=== PATIENT | female | born 1950 ===

== ENCOUNTER 2016-05-14 08:36 | Day surgery (SDC) | payer OTHER ==
[2016-05-13 11:39] VITALS: BMI 27.8
[2016-05-14 09:41] LABS: BASO % 1.1 % (0.0-2.0); EOS # 0.1 K/uL (0.0-0.7); EOS % 1.7 % (0.0-4.0); HEMATOCRIT 32.8 % (34.0-47.0); LYMPH # 0.6 K/uL (1.0-4.3); LYMPH % 20.6 % (20.0-40.0); MEAN CELL VOLUME 85.4 fL (81.0-99.0); MEAN CORPUSCULAR HEMOGLOBIN 27.8 pg (27.0-31.0); MEAN CORPUSCULAR HGB CONC 32.5 g/dL (33.0-37.0); MONO # 0.4 K/uL (0.0-0.8); MONO % 14.2 % (0.0-10.0); NRBC % 0.1 % (0.0-2.0); RED CELL DISTRIBUTION WIDTH 15.6 % (11.5-14.5)
[2016-05-14 09:51] LABS: INR 1.2
--- NOTE | 2016-05-14 12:48 | CP.SDSHP ---
Same Day Surgery H & P - History Proposed Procedure: US guided paracentesis. Pre-Op Diagnosis: Ascites - Allergies Allergies: Allergies No Known Allergies Allergy (Verified 04/25/15 22:36) - Physical Exam Vital Signs: Vital Signs 05/14/16 09:38 Temperature 97.9 F Pulse Rate 85 Respiratory 20 Rate Blood Pressure 115/69 O2 Sat by Pulse 99 Oximetry Mental Status: Alert & Oriented x3 Neuro: WNL Heart: WNL Lungs: WNL - Impression Impression: Pt with refractory ascites. Plan US guided paracentesis. Pt. Evaluated Today:Candidate for Anesthesia & Procedure: No - Date & Time Date: 05/14/16 Time: 12:40 Short Stay Discharge - Short Stay Discharge Admitting Diagnosis/Reason for Visit: SYMPTOMATIC ASCITES Disposition: HOME/ ROUTINE
--- NOTE | 2016-05-14 12:49 | PCM.SURG1 ---
Surgeon's Initial Post Op Note - Surgeon's Notes Surgeon: Paul Sepulveda MD Senior Software Test Engineer: NONE Type of Anesthesia: Local Pre-Operative Diagnosis: Refractory ascites Operative Findings: US showed a large amount of fluid Post-Operative Diagnosis: Refractory ascites Operation Performed: US guided paracentesis. Specimen/Specimens Removed: 17 liters of yellow fluid Estimated Blood Loss: EBL {In ML}: 0 Blood Products Given: N/A Drains Used: No Drains Post-Op Condition: Fair Date of Surgery/Procedure: 05/14/16 Time of Surgery/Procedure: 12:45
[2016-05-14 12:54] VITALS: RESP 16; O2SAT 100
[2016-05-14 15:00] VITALS: BP 102/76; PULSE 80; TEMP 97.7
== END 2016-05-14 13:25 | disposition home or self-care (01) ==
LOC: C.SPRAD 08:36
PROVIDERS: ATTEND Radiology Vascular & Interventional Radiology
DX: R18.8 Other ascites (principal)

== ENCOUNTER 2016-06-11 09:16 | Day surgery (SDC) | payer MEDICARE, OTHER ==
[2016-06-11 10:06] VITALS: BMI 29.2
[2016-06-11 10:28] LABS: BASO % 1.3 % (0.0-2.0); EOS % 1.7 % (0.0-4.0); HEMATOCRIT 32.1 % (34.0-47.0); LYMPH # 0.4 K/uL (1.0-4.3); LYMPH % 14.7 % (20.0-40.0); MEAN CELL VOLUME 86.3 fL (81.0-99.0); MEAN CORPUSCULAR HEMOGLOBIN 27.4 pg (27.0-31.0); MEAN CORPUSCULAR HGB CONC 31.7 g/dL (33.0-37.0); MEAN PLATELET VOLUME 8.9 fL (7.2-11.7); MONO # 0.3 K/uL (0.0-0.8); MONO % 9.2 % (0.0-10.0); NRBC % 0.1 % (0.0-2.0); RED CELL DISTRIBUTION WIDTH 15.4 % (11.5-14.5); WHITE BLOOD COUNT 2.8 K/uL (4.8-10.8)
[2016-06-11 10:36] LABS: INR 1.2
[2016-06-11 10:43] LABS: POTASSIUM 4.1 mmol/L (3.6-5.2)
[2016-06-11 10:46] LABS: CALCIUM 8.5 mg/dl (8.6-10.4)
--- NOTE | 2016-06-11 12:56 | PCM.SURG1 ---
Surgeon's Initial Post Op Note - Surgeon's Notes Surgeon: Paul Sepulveda MD Lieutenant Shift Supervisor: NONE Type of Anesthesia: Local Pre-Operative Diagnosis: Refractory ascites Operative Findings: US showed a large amount of ascites Post-Operative Diagnosis: Refractory ascites Operation Performed: US guided paracentesis. Specimen/Specimens Removed: 16 liters of straw colored fluid Estimated Blood Loss: EBL {In ML}: 0 Blood Products Given: N/A Drains Used: No Drains Post-Op Condition: Fair Date of Surgery/Procedure: 06/11/16 Time of Surgery/Procedure: 12:40
--- NOTE | 2016-06-11 12:57 | CP.SDSHP ---
Same Day Surgery H & P - History Proposed Procedure: US guided paracentesis Pre-Op Diagnosis: Ascites, abdominal pain - Allergies Allergies: Allergies No Known Allergies Allergy (Verified 04/25/15 22:36) - Physical Exam Vital Signs: Vital Signs 06/11/16 10:23 Temperature 97.6 F Pulse Rate 86 Respiratory 20 Rate Blood Pressure 123/69 O2 Sat by Pulse 99 Oximetry Mental Status: Alert & Oriented x3 Neuro: WNL Heart: WNL Lungs: WNL - {Optional Preform as Required} Abdomen: Other (Very distended) - Impression Impression: Pt with large amount of ascites. Plan US guided paracentesis. Pt. Evaluated Today:Candidate for Anesthesia & Procedure: No Short Stay Discharge - Short Stay Discharge Admitting Diagnosis/Reason for Visit: ASCITES CIRRHOSIS OF LIVER Disposition: HOME/ ROUTINE
[2016-06-11 14:35] VITALS: RESP 18; O2SAT 100
[2016-06-11 14:37] VITALS: BP 122/78; PULSE 76; TEMP 98
--- NOTE | 2016-06-11 15:46 | US ---
Date of Procedure: 06/11/2016 PROCEDURE: Ultrasound-guided paracentesis, CPT 38142 Medications: 8cc 1% Lidocaine HISTORY: Ascites, abdominal pain, cirrhosis TECHNIQUE: Following informed consent , the patient was placed supine on the stretcher and the site was marked. A limited abdominal ultrasound was performed that showed a large amount of intra-abdominal fluid. Procedural time out was called and the Pt's abdomen was marked and prepped and draped in the usual sterile fashion. Ultrasound-guided large volume paracentesis performed. A total of 16 liters of straw colored fluid was removed without complication. IMPRESSION: Ultrasound-guided large volume paracentesis.
== END 2016-06-11 13:20 | disposition home or self-care (01) ==
LOC: C.SPRAD 09:16
PROVIDERS: ATTEND Radiology Vascular & Interventional Radiology
DX: K70.31 Alcoholic cirrhosis of liver with ascites (principal); R10.9 Unspecified abdominal pain

== ENCOUNTER 2016-07-05 06:55 | Day surgery (SDC) | payer MEDICAID, MEDICARE ==
--- NOTE | 2016-07-05 11:14 | CP.SDSHP ---
Same Day Surgery H & P - History Proposed Procedure: US guided paracentesis Pre-Op Diagnosis: Ascites - Allergies Allergies: Allergies No Known Allergies Allergy (Verified 04/25/15 22:36) - Physical Exam Vital Signs: Vital Signs 07/05/16 07:15 Temperature 97.6 F Pulse Rate 78 Respiratory 20 Rate Blood Pressure 105/70 O2 Sat by Pulse 100 Oximetry Mental Status: Alert & Oriented x3 Neuro: WNL Heart: WNL Lungs: WNL - {Optional Preform as Required} Abdomen: Other (very distended. non tender.) - Impression Impression: Pt with refractory ascites referred for paracentesis. Pt. Evaluated Today:Candidate for Anesthesia & Procedure: No Short Stay Discharge - Short Stay Discharge Admitting Diagnosis/Reason for Visit: ASCITIES
--- NOTE | 2016-07-05 11:16 | PCM.SURG1 ---
Surgeon's Initial Post Op Note - Surgeon's Notes Surgeon: Paul Sepulveda Toy Stuffer: None Type of Anesthesia: Local Pre-Operative Diagnosis: Ascites Operative Findings: US showed a large amount of ascites Post-Operative Diagnosis: Ascites Operation Performed: US guided paracentesis. Specimen/Specimens Removed: 17, 800 ml of straw colored fluid Estimated Blood Loss: EBL {In ML}: 0 Blood Products Given: N/A Drains Used: No Drains Post-Op Condition: Fair Date of Surgery/Procedure: 07/05/16 Time of Surgery/Procedure: 11:25
--- NOTE | 2016-07-05 11:50 | US ---
Date of Procedure: 07/05/2016 PROCEDURE: Ultrasound-guided paracentesis, CPT 52823 Medications: 8cc 1% Lidocaine HISTORY: Ascites, abdominal pain, TECHNIQUE: Following informed consent , the patient was placed supine on the stretcher and the site was marked. A limited abdominal ultrasound was performed that showed a large amount of intra-abdominal fluid. Procedural time out was called and the Pt's abdomen was marked and prepped and draped in the usual sterile fashion. Ultrasound-guided large volume paracentesis performed. A total of 17.8 liters of straw colored fluid was removed without complication. IMPRESSION: Ultrasound-guided large volume paracentesis.
[2016-07-05 11:59] VITALS: BP 98/56; PULSE 76; RESP 18; TEMP 97.8; O2SAT 98
== END 2016-07-05 12:05 | disposition home or self-care (01) ==
LOC: C.SPRAD 06:55
PROVIDERS: ATTEND Radiology Vascular & Interventional Radiology
DX: R18.8 Other ascites (principal)

== ENCOUNTER 2016-07-29 10:54 | Day surgery (SDC) | payer MEDICAID ==
[2016-07-28 10:50] VITALS: BMI 30.2
[2016-07-29 11:45] VITALS: RESP 18; O2SAT 100
[2016-07-29 14:06] VITALS: BP 101/52; PULSE 72; TEMP 97.5
--- NOTE | 2016-07-29 15:01 | PCM.SURG1 ---
Surgeon's Initial Post Op Note - Surgeon's Notes Surgeon: Paul Sepulveda MD Nursing Admin: None Type of Anesthesia: Local Pre-Operative Diagnosis: Ascites Operative Findings: US showed a large amount of ascites Post-Operative Diagnosis: Ascites Operation Performed: US guided paracentesis. Specimen/Specimens Removed: 17 liters of straw colored fluid Estimated Blood Loss: EBL {In ML}: 0 Blood Products Given: N/A Drains Used: No Drains Post-Op Condition: Fair Date of Surgery/Procedure: 07/29/16 Time of Surgery/Procedure: 14:20
--- NOTE | 2016-07-29 15:02 | CP.SDSHP ---
Same Day Surgery H & P - History Proposed Procedure: US guided paracentesis. Pre-Op Diagnosis: Ascites - Allergies Allergies: Allergies No Known Allergies Allergy (Verified 04/25/15 22:36) - Physical Exam Vital Signs: Vital Signs 07/29/16 07/29/16 11:23 13:56 Temperature 97.7 F 97.5 F L Pulse Rate 83 72 Respiratory 18 18 Rate Blood Pressure 110/60 101/52 L O2 Sat by Pulse 100 100 Oximetry Mental Status: Alert & Oriented x3 Neuro: WNL Heart: WNL - {Optional Preform as Required} Abdomen: Other (very distended, non tender) - Impression Impression: Pt with refractory ascites. Plan US guided paracentesis. Pt. Evaluated Today:Candidate for Anesthesia & Procedure: No - Date & Time Date: 07/29/16 Time: 13:00 Short Stay Discharge - Short Stay Discharge Admitting Diagnosis/Reason for Visit: ASCITIS Disposition: HOME/ ROUTINE
--- NOTE | 2016-07-29 15:11 | US ---
Date of Procedure: 07/29/2016 PROCEDURE: Ultrasound-guided paracentesis, CPT 78584 Medications: 8cc 1% Lidocaine HISTORY: Ascites, abdominal pain TECHNIQUE: Following informed consent , the patient was placed supine on the stretcher and the site was marked. A limited abdominal ultrasound was performed that showed a large amount of intra-abdominal fluid. Procedural time out was called and the Pt's abdomen was marked and prepped and draped in the usual sterile fashion. Ultrasound-guided large volume paracentesis performed. A total of 17 liters of straw colored fluid was removed without complication. IMPRESSION: Ultrasound-guided large volume paracentesis.
== END 2016-07-29 14:41 | disposition home or self-care (01) ==
LOC: C.SPRAD 10:54
PROVIDERS: ATTEND Radiology Vascular & Interventional Radiology
DX: R18.8 Other ascites (principal)

== ENCOUNTER 2016-08-26 07:31 | Day surgery (SDC) | payer MEDICARE, OTHER ==
[2016-07-28 10:50] VITALS: BMI 30.2
[2016-08-26 08:13] VITALS: RESP 18
--- NOTE | 2016-08-26 11:30 | CP.SDSHP ---
Same Day Surgery H & P - History Proposed Procedure: US guided paracentesis. Pre-Op Diagnosis: Ascites - Allergies Allergies: Allergies No Known Allergies Allergy (Verified 04/25/15 22:36) - Physical Exam Vital Signs: Vital Signs 08/26/16 08:04 Temperature 97.6 F Pulse Rate 82 Respiratory 18 Rate Blood Pressure 117/65 O2 Sat by Pulse 99 Oximetry Mental Status: Alert & Oriented x3 - {Optional Preform as Required} Abdomen: Other (very distended, non tender.) - Impression Impression: Pt with refractory ascites referred for paracentesis. Plan US guided paracentesis. Pt. Evaluated Today:Candidate for Anesthesia & Procedure: No - Date & Time Date: 08/26/16 Time: 11:15 Short Stay Discharge - Short Stay Discharge Admitting Diagnosis/Reason for Visit: ASCITESIS Disposition: HOME/ ROUTINE
--- NOTE | 2016-08-26 12:58 | PCM.SURG1 ---
Surgeon's Initial Post Op Note - Surgeon's Notes Surgeon: Paul Sepulveda MD Industrial Gas Servicer: NONE Type of Anesthesia: Local Pre-Operative Diagnosis: Ascites Operative Findings: US showed large amount of ascites Post-Operative Diagnosis: Ascites Operation Performed: US guided paracentesis. Specimen/Specimens Removed: 18.6 liters of straw colored fluid Estimated Blood Loss: EBL {In ML}: 0 Blood Products Given: N/A Drains Used: No Drains Post-Op Condition: Fair Date of Surgery/Procedure: 08/26/16 Time of Surgery/Procedure: 12:55
[2016-08-26 13:07] VITALS: BP 124/58; PULSE 72; TEMP 97.4; O2SAT 100
--- NOTE | 2016-08-27 11:41 | US ---
Date of Procedure: 08/26/2016 PROCEDURE: Ultrasound-guided paracentesis, CPT 36932 Medications: 8cc 1% Lidocaine HISTORY: Ascites, abdominal pain, cirrhosis TECHNIQUE: Following informed consent , the patient was placed supine on the stretcher and the site was marked. A limited abdominal ultrasound was performed that showed a large amount of intra-abdominal fluid. Procedural time out was called and the Pt's abdomen was marked and prepped and draped in the usual sterile fashion. Ultrasound-guided large volume paracentesis performed. A total of 18.6 liters of straw colored fluid was removed without complication. IMPRESSION: Ultrasound-guided large volume paracentesis.
== END 2016-08-26 13:15 | disposition home or self-care (01) ==
LOC: C.SPRAD 07:31
PROVIDERS: ATTEND Radiology Vascular & Interventional Radiology
DX: R18.8 Other ascites (principal); K74.60 Unspecified cirrhosis of liver

== ENCOUNTER 2016-09-20 07:54 | Day surgery (SDC) | payer OTHER, MEDICARE ==
[2016-09-20 08:12] VITALS: BMI 29.2
[2016-09-20 08:26] VITALS: BP 90/60; PULSE 80; RESP 18; TEMP 97.7; O2SAT 97
--- NOTE | 2016-09-20 11:15 | CP.SDSHP ---
Same Day Surgery H & P - History Proposed Procedure: Paracentesis Pre-Op Diagnosis: Ascites - Allergies Allergies: Allergies No Known Allergies Allergy (Verified 04/25/15 22:36) - Physical Exam Vital Signs: Vital Signs 09/20/16 08:12 Temperature 97.7 F Pulse Rate 80 Respiratory 18 Rate Blood Pressure 90/60 L O2 Sat by Pulse 97 Oximetry Mental Status: Alert & Oriented x3 - Impression Impression: Pt with refractory ascites referred for paracentesis. Pt. Evaluated Today:Candidate for Anesthesia & Procedure: No - Date & Time Date: 09/20/16 Time: 10:10 Short Stay Discharge - Short Stay Discharge Admitting Diagnosis/Reason for Visit: ASCITIS Disposition: HOME/ ROUTINE
--- NOTE | 2016-09-20 11:16 | PCM.SURG1 ---
Surgeon's Initial Post Op Note - Surgeon's Notes Surgeon: Paul Sepulveda MD Manager Mortgage: None Type of Anesthesia: Local Pre-Operative Diagnosis: Ascites Operative Findings: US showed large amount of ascites Post-Operative Diagnosis: Ascites Operation Performed: US guided paracentesis. Specimen/Specimens Removed: 17.5 liters of cloudy fluid Estimated Blood Loss: EBL {In ML}: 0 Blood Products Given: N/A Drains Used: No Drains Post-Op Condition: Fair Date of Surgery/Procedure: 09/20/16 Time of Surgery/Procedure: 11:10
--- NOTE | 2016-09-20 13:28 | US ---
Date of Procedure: 09/20/2016 PROCEDURE: Ultrasound-guided paracentesis, CPT 53661 Medications: 7 cc 1% Lidocaine HISTORY: Ascites, abdominal pain, cirrhosis TECHNIQUE: Following informed consent , the patient was placed supine on the stretcher and the site was marked. A limited abdominal ultrasound was performed that showed a large amount of intra-abdominal fluid. Procedural time out was called and the Pt's abdomen was marked and prepped and draped in the usual sterile fashion. Ultrasound-guided large volume paracentesis performed. A total of 17.5 liters of cloudy fluid was removed without complication. IMPRESSION: Ultrasound-guided large volume paracentesis.
== END 2016-09-20 12:45 | disposition home or self-care (01) ==
LOC: C.SPRAD 07:54
PROVIDERS: ATTEND Radiology Vascular & Interventional Radiology
DX: R18.8 Other ascites (principal); K74.60 Unspecified cirrhosis of liver

== ENCOUNTER 2016-10-14 05:49 | Day surgery (SDC) | payer MEDICARE, OTHER ==
[2016-10-14 08:17] LABS: INR 1.1
--- NOTE | 2016-10-14 09:02 | CP.SDSHP ---
Same Day Surgery H & P - History Proposed Procedure: Paracentesis Pre-Op Diagnosis: Ascites - Allergies Allergies: Allergies No Known Allergies Allergy (Verified 04/25/15 22:36) - Physical Exam Vital Signs: Vital Signs 10/14/16 07:31 Temperature 97.6 F Pulse Rate 80 Respiratory 18 Rate Blood Pressure 104/62 O2 Sat by Pulse 99 Oximetry Short Stay Discharge - Short Stay Discharge Admitting Diagnosis/Reason for Visit: RECURRENT ASCITES Disposition: HOME/ ROUTINE
[2016-10-14] MEDS ORDERED: Albumin Human 25% (12.5 gm/50 ml) IV ONE ×3 (10:00)
[2016-10-14 10:44] VITALS: PULSE 75
[2016-10-14 12:11] VITALS: BP 90/52; RESP 20; TEMP 97.2; O2SAT 100
--- NOTE | 2016-10-14 14:30 | US ---
Ultrasound guided paracentesis. Clinical History: Ascites with abdominal pain and distension. Technique: The relative risks and indications for the procedure were explained to the patient and informed written consent obtained. Sonography of the abdomen was performed in a supine position. This revealed a large amount of non-loculated ascites, greatest in the right lower quadrant. A puncture site was selected and the area was prepped and draped in the usual sterile fashion. 1% lidocaine was used to anesthetize the skin and soft tissues. A 5 Azeri paracentesis catheter was trocared into the right lower quadrant under real time ultrasound guidance. A permanent image was stored. Approximately [id number] of zuly fluid aspirated. Impression: Ultrasound-guided paracentesis in the right lower quadrant. Approximately 81312 cc of zuly colored fluid was aspirated.
== END 2016-10-14 11:37 | disposition home or self-care (01) ==
LOC: C.SPRAD 05:49
PROVIDERS: ATTEND Orthopaedic Surgery Sports Medicine
DX: R18.8 Other ascites (principal)
CPT/HCPCS: 36415; 49083; 82948; 85610; 85730; P9047

== ENCOUNTER 2016-11-01 07:13 | Day surgery (SDC) | payer OTHER ==
[2016-11-01 08:27] VITALS: O2SAT 100
--- NOTE | 2016-11-01 12:00 | US ---
Date of Procedure: 11/01/2016 PROCEDURE: Ultrasound-guided paracentesis, CPT 37102 Medications: 7 cc 1% Lidocaine HISTORY: Ascites, abdominal pain, cirrhosis TECHNIQUE: Following informed consent , the patient was placed supine on the stretcher and the site was marked. A limited abdominal ultrasound was performed that showed a large amount of intra-abdominal fluid. Procedural time out was called and the Pt's abdomen was marked and prepped and draped in the usual sterile fashion. Ultrasound-guided large volume paracentesis performed. A total of 17.6 liters of yellow fluid was removed without complication. IMPRESSION: Ultrasound-guided large volume paracentesis.
[2016-11-01 12:08] VITALS: RESP 18
[2016-11-01 12:25] VITALS: BP 101/54; PULSE 74; TEMP 98
--- NOTE | 2016-11-01 12:25 | CP.SDSHP ---
Same Day Surgery H & P - History Proposed Procedure: Paracentesis. Pre-Op Diagnosis: Ascites - Allergies Allergies: Allergies No Known Allergies Allergy (Verified 04/25/15 22:36) - Physical Exam Vital Signs: Vital Signs 11/01/16 11/01/16 07:59 11:55 Temperature 97.2 F L 97.8 F Pulse Rate 73 75 Respiratory 20 18 Rate Blood Pressure 105/67 90/45 L O2 Sat by Pulse 100 100 Oximetry Mental Status: Alert & Oriented x3 Neuro: WNL Heart: WNL Lungs: WNL - {Optional Preform as Required} Abdomen: Other (Very distended. Non tender) - Impression Impression: Pt with refractory ascites referred for paracentesis. Pt. Evaluated Today:Candidate for Anesthesia & Procedure: No - Date & Time Date: 11/01/16 Time: 10:30 Short Stay Discharge - Short Stay Discharge Admitting Diagnosis/Reason for Visit: ASCITES Disposition: HOME/ ROUTINE
--- NOTE | 2016-11-01 12:26 | PCM.SURG1 ---
Surgeon's Initial Post Op Note - Surgeon's Notes Surgeon: Paul Sepulveda MD Ve Teacher: NONE Type of Anesthesia: Local Pre-Operative Diagnosis: Refractory ascites Operative Findings: US showed large amount of ascites Post-Operative Diagnosis: Refractory ascites Operation Performed: US guided paracentesis. Specimen/Specimens Removed: 17.6 liters of yellow fluid. Estimated Blood Loss: EBL {In ML}: 0 Blood Products Given: N/A Drains Used: No Drains Post-Op Condition: Fair Date of Surgery/Procedure: 11/01/16 Time of Surgery/Procedure: 11:45
== END 2016-11-01 12:20 | disposition home or self-care (01) ==
LOC: C.SPRAD 07:13
PROVIDERS: ATTEND Radiology Vascular & Interventional Radiology
DX: R10.9 Unspecified abdominal pain (principal); K74.60 Unspecified cirrhosis of liver; R18.8 Other ascites

== ENCOUNTER 2016-11-25 06:59 | Day surgery (SDC) | payer OTHER ==
--- NOTE | 2016-11-25 11:37 | CP.SDSHP ---
Same Day Surgery H & P - History Proposed Procedure: US guided paracentesis. Pre-Op Diagnosis: Ascites - Allergies Allergies: Allergies No Known Allergies Allergy (Verified 04/25/15 22:36) - Physical Exam Vital Signs: Vital Signs 11/25/16 07:15 Temperature 97.1 F L Pulse Rate 76 Respiratory 20 Rate Blood Pressure 106/63 O2 Sat by Pulse 100 Oximetry Mental Status: Alert & Oriented x3 Neuro: WNL Heart: WNL Lungs: WNL - Impression Impression: Pt with large amount of ascites. Plan US guided paracentesis. Pt. Evaluated Today:Candidate for Anesthesia & Procedure: No Short Stay Discharge - Short Stay Discharge Admitting Diagnosis/Reason for Visit: ASCITIC
--- NOTE | 2016-11-25 11:39 | PCM.SURG1 ---
Surgeon's Initial Post Op Note - Surgeon's Notes Surgeon: Paul Sepulveda MD Senior Wind Turbine Technician: NONE Type of Anesthesia: Local Pre-Operative Diagnosis: Ascites Operative Findings: US guided paracentesis Post-Operative Diagnosis: Ascites Operation Performed: US guided paracentesis Specimen/Specimens Removed: 18 liters of straw colored fluid Estimated Blood Loss: EBL {In ML}: 0 Blood Products Given: N/A Drains Used: No Drains Post-Op Condition: Fair Date of Surgery/Procedure: 11/25/16 Time of Surgery/Procedure: 11:30
[2016-11-25 12:41] VITALS: BP 98/48; PULSE 79; RESP 18; TEMP 97.2; O2SAT 99
--- NOTE | 2016-11-29 10:32 | US ---
Date of Procedure: 11/25/2016 PROCEDURE: Ultrasound-guided paracentesis, CPT 75454 Medications: 7 cc 1% Lidocaine HISTORY: Ascites, abdominal pain, cirrhosis TECHNIQUE: Following informed consent , the patient was placed supine on the stretcher and the site was marked. A limited abdominal ultrasound was performed that showed a large amount of intra-abdominal fluid. Procedural time out was called and the Pt's abdomen was marked and prepped and draped in the usual sterile fashion. Ultrasound-guided large volume paracentesis performed. A total of 18.5 liters of straw colored fluid was removed without complication. IMPRESSION: Ultrasound-guided large volume paracentesis.
== END 2016-11-25 12:20 | disposition home or self-care (01) ==
LOC: C.SPRAD 06:59
PROVIDERS: ATTEND Radiology Vascular & Interventional Radiology
DX: R18.8 Other ascites (principal)

== ENCOUNTER 2017-01-20 07:10 | Day surgery (SDC) | payer OTHER ==
[2017-01-20 08:28] VITALS: RESP 18
--- NOTE | 2017-01-20 12:48 | CP.SDSHP ---
Same Day Surgery H & P - History Proposed Procedure: Paracentesis Pre-Op Diagnosis: Ascites - Allergies Allergies: Allergies No Known Allergies Allergy (Verified 04/25/15 22:36) - Physical Exam Vital Signs: Vital Signs 01/20/17 07:53 Temperature 98 F Pulse Rate 82 Respiratory 18 Rate Blood Pressure 95/58 L O2 Sat by Pulse 99 Oximetry Mental Status: Alert & Oriented x3 Neuro: WNL Heart: WNL - Impression Impression: Pt with refractory ascites referred for paracentesis. Plan US guided paracentesis. Pt. Evaluated Today:Candidate for Anesthesia & Procedure: No - Date & Time Date: 01/20/17 Time: 11:35 Short Stay Discharge - Short Stay Discharge Admitting Diagnosis/Reason for Visit: ASCITES Disposition: HOME/ ROUTINE
--- NOTE | 2017-01-20 12:49 | PCM.SURG1 ---
Surgeon's Initial Post Op Note - Surgeon's Notes Surgeon: Paul Sepulveda MD Engineering Manager: NONE Type of Anesthesia: Local Pre-Operative Diagnosis: Ascites Operative Findings: US showed a large amount of ascites Post-Operative Diagnosis: Ascites Operation Performed: US guided paracentesis Specimen/Specimens Removed: 18 liters of fluid Estimated Blood Loss: EBL {In ML}: 0 Blood Products Given: N/A Drains Used: No Drains Post-Op Condition: Fair Date of Surgery/Procedure: 01/20/17 Time of Surgery/Procedure: 12:40
[2017-01-20 13:31] VITALS: BP 96/55; PULSE 73; TEMP 97.8; O2SAT 98
--- NOTE | 2017-01-24 11:11 | US ---
Date of Procedure: 01/20/2017 PROCEDURE: Ultrasound-guided paracentesis, CPT 84804 Medications: 7 cc 1% Lidocaine HISTORY: Ascites, abdominal pain TECHNIQUE: Following informed consent , the patient was placed supine on the stretcher and the site was marked. A limited abdominal ultrasound was performed that showed a large amount of intra-abdominal fluid. Procedural time out was called and the Pt's abdomen was marked and prepped and draped in the usual sterile fashion. Ultrasound-guided large volume paracentesis performed. A total of 19 liters of straw colored fluid was removed without complication. IMPRESSION: Ultrasound-guided large volume paracentesis.
== END 2017-01-20 13:20 | disposition home or self-care (01) ==
LOC: C.SPRAD 07:10
PROVIDERS: ATTEND Radiology Vascular & Interventional Radiology
DX: R18.8 Other ascites (principal)

== ENCOUNTER 2017-02-18 06:37 | Day surgery (SDC) | payer OTHER ==
--- NOTE | 2017-02-18 10:27 | CP.SDSHP ---
Same Day Surgery H & P - History Proposed Procedure: US guided paracentesis Pre-Op Diagnosis: Ascites, abdominal pain - Allergies Allergies: Allergies No Known Allergies Allergy (Verified 04/25/15 22:36) - Physical Exam Vital Signs: Vital Signs 02/18/17 07:54 Temperature 97.9 F Pulse Rate 81 Respiratory 20 Rate Blood Pressure 107/64 O2 Sat by Pulse 100 Oximetry Mental Status: Alert & Oriented x3 Neuro: WNL Heart: WNL - {Optional Preform as Required} Abdomen: Other (very distended, non tender) - Impression Impression: Pt with refractory ascites refered for parancentesis. Pt. Evaluated Today:Candidate for Anesthesia & Procedure: No - Date & Time Date: 02/18/17 Time: 09:00 Short Stay Discharge - Short Stay Discharge Admitting Diagnosis/Reason for Visit: ASCITIS Disposition: HOME/ ROUTINE
--- NOTE | 2017-02-18 10:28 | PCM.SURG1 ---
Surgeon's Initial Post Op Note - Surgeon's Notes Surgeon: Paul Sepulveda MD Feed Research Technician: NONE Type of Anesthesia: Local Pre-Operative Diagnosis: Ascites Operative Findings: US showed a large amount of ascites Post-Operative Diagnosis: Ascites Operation Performed: US guided paracentesis Specimen/Specimens Removed: 15 liters of straw colored fluid Estimated Blood Loss: EBL {In ML}: 0 Blood Products Given: N/A Drains Used: No Drains Post-Op Condition: Fair Date of Surgery/Procedure: 02/18/17 Time of Surgery/Procedure: 10:25
--- NOTE | 2017-02-18 10:36 | US ---
Date of Procedure: PROCEDURE: Ultrasound-guided paracentesis, CPT 67902 Medications: 7 cc 1% Lidocaine HISTORY: Ascites, abdominal pain, cirrhosis TECHNIQUE: Following informed consent , the patient was placed supine on the stretcher and the site was marked. A limited abdominal ultrasound was performed that showed a large amount of intra-abdominal fluid. Procedural time out was called and the Pt's abdomen was marked and prepped and draped in the usual sterile fashion. Ultrasound-guided large volume paracentesis performed. A total of 15 liters of straw colored fluid was removed without complication. IMPRESSION: Ultrasound-guided large volume paracentesis.
[2017-02-18 10:47] VITALS: BP 57/90; PULSE 87; RESP 18; TEMP 97.4; O2SAT 96
== END 2017-02-18 11:05 | disposition home or self-care (01) ==
LOC: C.SPRAD 06:37
PROVIDERS: ATTEND Radiology Vascular & Interventional Radiology
DX: K74.60 Unspecified cirrhosis of liver (principal); R18.8 Other ascites

== ENCOUNTER 2017-03-15 06:47 | Day surgery (SDC) | payer OTHER ==
--- NOTE | 2017-03-15 11:10 | CP.SDSHP ---
Same Day Surgery H & P - History Proposed Procedure: US guided paracentesis Pre-Op Diagnosis: Ascites - Allergies Allergies: Allergies No Known Allergies Allergy (Verified 04/25/15 22:36) - Physical Exam Mental Status: Alert & Oriented x3 - {Optional Preform as Required} Abdomen: Other (Very distended) - Impression Impression: Pt with refractory ascites. US showed a large amount of ascites. Plan US guided paracentesis. Pt. Evaluated Today:Candidate for Anesthesia & Procedure: No Short Stay Discharge - Short Stay Discharge Admitting Diagnosis/Reason for Visit: ASCITES
--- NOTE | 2017-03-15 11:31 | PCM.SURG1 ---
Surgeon's Initial Post Op Note - Surgeon's Notes Surgeon: Paul Sepulveda MD Clarifier Operator Helper: NONE Type of Anesthesia: Local Pre-Operative Diagnosis: Ascites Operative Findings: US showed a large amount of ascites Post-Operative Diagnosis: Ascites Operation Performed: US guided paracentesis Specimen/Specimens Removed: 15 liters of straw colored fluid Estimated Blood Loss: EBL {In ML}: 0 Blood Products Given: N/A Drains Used: No Drains Post-Op Condition: Good Date of Surgery/Procedure: 03/15/17 Time of Surgery/Procedure: 11:25
[2017-03-15 11:32] VITALS: BMI 27.4
[2017-03-15 11:51] VITALS: BP 103/66; PULSE 82; RESP 18; TEMP 97; O2SAT 97
--- NOTE | 2017-03-15 12:48 | US ---
Date of Procedure: PROCEDURE: Ultrasound-guided paracentesis, CPT 28515 Medications: 7 cc 1% Lidocaine HISTORY: Ascites, abdominal pain TECHNIQUE: Following informed consent , the patient was placed supine on the stretcher and the site was marked. A limited abdominal ultrasound was performed that showed a large amount of intra-abdominal fluid. Procedural time out was called and the Pt's abdomen was marked and prepped and draped in the usual sterile fashion. Ultrasound-guided large volume paracentesis performed. A total of 15 liters of straw colored fluid was removed without complication. IMPRESSION: Ultrasound-guided large volume paracentesis.
== END 2017-03-15 12:30 | disposition home or self-care (01) ==
LOC: C.SPRAD 06:47 → C.SDS 06:47
PROVIDERS: ATTEND Radiology Vascular & Interventional Radiology
DX: R18.8 Other ascites (principal)

== ENCOUNTER 2017-04-08 07:58 | Day surgery (SDC) | payer OTHER ==
--- NOTE | 2017-04-08 13:52 | CP.SDSHP ---
Same Day Surgery H & P - History Proposed Procedure: US guided paracentesis Pre-Op Diagnosis: Ascites, abdominal pain - Allergies Allergies: Allergies No Known Allergies Allergy (Verified 04/25/15 22:36) - Physical Exam Vital Signs: Vital Signs 04/08/17 08:24 Temperature 97.6 F Pulse Rate 74 Respiratory 18 Rate Blood Pressure 99/63 L O2 Sat by Pulse 96 Oximetry Mental Status: Alert & Oriented x3 Neuro: WNL Heart: WNL - {Optional Preform as Required} Abdomen: Other (very distended) - Impression Impression: Pt with refractory ascites. Plan US guided paracentesis. Pt. Evaluated Today:Candidate for Anesthesia & Procedure: No Short Stay Discharge - Short Stay Discharge Admitting Diagnosis/Reason for Visit: RECURRENT ASCITES Disposition: HOME/ ROUTINE
--- NOTE | 2017-04-08 13:54 | PCM.SURG1 ---
Surgeon's Initial Post Op Note - Surgeon's Notes Surgeon: Paul Clay MD Block Sorter: NONE Type of Anesthesia: Local Pre-Operative Diagnosis: Refractory ascites Operative Findings: US showed a large amount of ascites Post-Operative Diagnosis: Refractory ascites Operation Performed: US guided paracentesis Specimen/Specimens Removed: 16.2 liters of fluid Estimated Blood Loss: EBL {In ML}: 0 Blood Products Given: N/A Drains Used: No Drains Post-Op Condition: Good Date of Surgery/Procedure: 04/08/17 Time of Surgery/Procedure: 13:50
[2017-04-08 14:25] VITALS: BP 97/57; PULSE 71; RESP 15; TEMP 97.4; O2SAT 98
--- NOTE | 2017-04-08 15:03 | US ---
Date of Procedure: 04/08/2017 PROCEDURE: Ultrasound-guided paracentesis, CPT 78275 Medications: 7 cc 1% Lidocaine HISTORY: Ascites, abdominal pain, cirrhosis TECHNIQUE: Following informed consent , the patient was placed supine on the stretcher and the site was marked. A limited abdominal ultrasound was performed that showed a large amount of intra-abdominal fluid. Procedural time out was called and the Pt's abdomen was marked and prepped and draped in the usual sterile fashion. Ultrasound-guided large volume paracentesis performed. A total of 16.2 liters of straw colored fluid was removed without complication. IMPRESSION: Ultrasound-guided large volume paracentesis.
== END 2017-04-08 14:59 | disposition home or self-care (01) ==
LOC: C.SPRAD 07:58
PROVIDERS: ATTEND Radiology Vascular & Interventional Radiology
DX: R18.8 Other ascites (principal); K74.60 Unspecified cirrhosis of liver

== ENCOUNTER 2017-04-28 07:53 | Day surgery (SDC) | payer OTHER ==
--- NOTE | 2017-04-28 11:36 | CP.SDSHP ---
Same Day Surgery H & P - History Proposed Procedure: US guided paracentesis Pre-Op Diagnosis: Ascites, pain - Allergies Allergies: Allergies No Known Allergies Allergy (Verified 04/25/15 22:36) - Physical Exam Mental Status: Alert & Oriented x3 Neuro: WNL Heart: WNL Lungs: WNL - {Optional Preform as Required} Abdomen: Other (distended, non tender) - Impression Impression: Pt with refractory ascites refered for paracentesis. Pt. Evaluated Today:Candidate for Anesthesia & Procedure: No - Date & Time Date: 04/28/17 Time: 10:45 Short Stay Discharge - Short Stay Discharge Admitting Diagnosis/Reason for Visit: recurrent symptomatic ascities Disposition: HOME/ ROUTINE
--- NOTE | 2017-04-28 11:39 | PCM.SURG1 ---
Surgeon's Initial Post Op Note - Surgeon's Notes Surgeon: Paul Sepulveda MD Rn Hedis: NONE Type of Anesthesia: Local Pre-Operative Diagnosis: Ascites Operative Findings: US showed a large amount of ascites Post-Operative Diagnosis: Ascites Operation Performed: US guided paracentesis Specimen/Specimens Removed: 18 liters of whitish fluid Estimated Blood Loss: EBL {In ML}: 0 Blood Products Given: N/A Drains Used: No Drains Post-Op Condition: Good Date of Surgery/Procedure: 04/28/17 Time of Surgery/Procedure: 11:35
--- NOTE | 2017-04-28 14:00 | US ---
Date of Procedure: 04/28/2017 PROCEDURE: Ultrasound-guided paracentesis, CPT 88499 Medications: 7 cc 1% Lidocaine HISTORY: Ascites, abdominal pain, cirrhosis TECHNIQUE: Following informed consent , the patient was placed supine on the stretcher and the site was marked. A limited abdominal ultrasound was performed that showed a large amount of intra-abdominal fluid. Procedural time out was called and the Pt's abdomen was marked and prepped and draped in the usual sterile fashion. Ultrasound-guided large volume paracentesis performed. A total of 15.5 liters of whitish colored fluid was removed without complication. IMPRESSION: Ultrasound-guided large volume paracentesis.
== END 2017-04-28 12:55 | disposition home or self-care (01) ==
LOC: C.SPRAD 07:53
PROVIDERS: ATTEND Radiology Vascular & Interventional Radiology
DX: R18.8 Other ascites (principal); K74.60 Unspecified cirrhosis of liver

== ENCOUNTER → 2017-05-25 | Day surgery (SDC) | payer OTHER ==
[2017-05-25 07:18] VITALS: BMI 28.9
[2017-05-25 07:45] LABS: EOS % 0.7 % (0.0-4.0); LYMPH # 0.5 K/uL (1.0-4.3); MEAN CELL VOLUME 86.6 fL (81.0-99.0); MEAN CORPUSCULAR HEMOGLOBIN 28.6 pg (27.0-31.0); MEAN CORPUSCULAR HGB CONC 33.1 g/dL (33.0-37.0); MEAN PLATELET VOLUME 9.1 fL (7.2-11.7); MONO # 0.3 K/uL (0.0-0.8); MONO % 11.1 % (0.0-10.0); NEUT # 1.8 K/uL (1.8-7.0); NEUT % 68.2 % (50.0-75.0); RBC 3.05 Mil/uL (3.80-5.20); RED CELL DISTRIBUTION WIDTH 15.7 % (11.5-14.5)
[2017-05-25 07:52] LABS: HEMOGLOBIN 8.7 g/dL (11.0-16.0); WHITE BLOOD COUNT 2.6 K/uL (4.8-10.8)
[2017-05-25 07:57] LABS: INR 1.2; PROTHROMBIN TIME 13.3 SECONDS (9.7-12.2)
[2017-05-25 07:58] LABS: CALCIUM 8.2 mg/dl (8.6-10.4)
--- NOTE | 2017-05-25 10:43 | CP.SDSHP ---
Same Day Surgery H & P - History Proposed Procedure: US guided paracentesis Pre-Op Diagnosis: Ascites - Allergies Allergies: Allergies No Known Allergies Allergy (Verified 04/25/15 22:36) - Physical Exam Vital Signs: Vital Signs 05/25/17 08:01 Temperature 97.9 F Pulse Rate 80 Respiratory 18 Rate Blood Pressure 92/61 L O2 Sat by Pulse 99 Oximetry Mental Status: Alert & Oriented x3 Neuro: WNL Heart: WNL - Impression Impression: Pt with refractory ascites. Pt referred for paracentesis. Pt. Evaluated Today:Candidate for Anesthesia & Procedure: No - Date & Time Date: 05/25/17 Time: 10:35 Short Stay Discharge - Short Stay Discharge Admitting Diagnosis/Reason for Visit: OTHER ASCITES Disposition: HOME/ ROUTINE
--- NOTE | 2017-05-25 10:44 | PCM.SURG1 ---
Surgeon's Initial Post Op Note - Surgeon's Notes Surgeon: Paul Sepulveda MD Slicing Machine Feeder: NONE Type of Anesthesia: Local Pre-Operative Diagnosis: Ascites Operative Findings: US showed a large amount of ascites Post-Operative Diagnosis: Ascites Operation Performed: US guided paracentesis Specimen/Specimens Removed: 39721 ml of straw colored fluid Estimated Blood Loss: EBL {In ML}: 0 Blood Products Given: N/A Drains Used: No Drains Post-Op Condition: Fair Date of Surgery/Procedure: 05/25/17 Time of Surgery/Procedure: 10:40
[2017-05-25 11:16] VITALS: BP 91/57; PULSE 81; RESP 15; TEMP 97.5; O2SAT 100
--- NOTE | 2017-05-25 14:31 | US ---
Date of Procedure: 05/25/2017 PROCEDURE: Ultrasound-guided paracentesis, CPT 25120 Medications: 7 cc 1% Lidocaine HISTORY: Ascites, abdominal pain, cirrhosis TECHNIQUE: Following informed consent , the patient was placed supine on the stretcher and the site was marked. A limited abdominal ultrasound was performed that showed a large amount of intra-abdominal fluid. Procedural time out was called and the Pt's abdomen was marked and prepped and draped in the usual sterile fashion. Ultrasound-guided large volume paracentesis performed. A total of 12 liters of straw colored fluid was removed without complication. IMPRESSION: Ultrasound-guided large volume paracentesis.
== END | disposition home or self-care (01) ==
LOC: C.SPRAD 07:08
PROVIDERS: ATTEND Radiology Vascular & Interventional Radiology
DX: R18.8 Other ascites (principal); K74.60 Unspecified cirrhosis of liver

== ENCOUNTER 2017-06-13 07:00 | Day surgery (SDC) | payer OTHER ==
[2017-05-25 07:18] VITALS: BMI 28.9
[2017-06-13 07:52] VITALS: RESP 18; TEMP 97.7; O2SAT 100
--- NOTE | 2017-06-13 09:51 | CP.SDSHP ---
Same Day Surgery H & P - History Proposed Procedure: us guided paracentesis Pre-Op Diagnosis: refractory ascites - Allergies Allergies: Allergies No Known Allergies Allergy (Verified 04/25/15 22:36) - Physical Exam Vital Signs: Vital Signs 06/13/17 07:20 Temperature 97.7 F Pulse Rate 83 Respiratory 18 Rate Blood Pressure 117/68 O2 Sat by Pulse 100 Oximetry - Impression Impression: 67 yo female w/ refractory ascites; plan us guided paracentesis - Date & Time Date: 06/13/17 Time: 09:30 Short Stay Discharge - Short Stay Discharge Admitting Diagnosis/Reason for Visit: recurrent ascities/cirrhosis of the liver Disposition: HOME/ ROUTINE
[2017-06-13 11:07] VITALS: BP 93/51; PULSE 77
--- NOTE | 2017-06-13 11:38 | PCM.SURG1 ---
Surgeon's Initial Post Op Note - Surgeon's Notes Surgeon: Michael Huang MD Motor Vehicle Operator Road Supervisor: None Type of Anesthesia: Local Pre-Operative Diagnosis: refractory ascites Operative Findings: large volume ascites Post-Operative Diagnosis: same Operation Performed: us guided paracentesis Specimen/Specimens Removed: 17L straw colored fluid removed Estimated Blood Loss: EBL {In ML}: 0 Date of Surgery/Procedure: 06/13/17 Time of Surgery/Procedure: 11:38
--- NOTE | 2017-06-13 14:07 | US ---
PROCEDURE: ULTRASOUND-GUIDED PARACENTESIS CLINICAL HISTORY: 67-year-old female with cirrhosis and recurrent symptomatic ascites is referred to Interventional Radiology for ultrasound-guided paracentesis. COMPARISON: Paracentesis performed 05/25/2017 PROCEDURE: 1. Ultrasound-guided paracentesis. PRE-PROCEDURE FINDINGS: 1. Large volume ascites. POST-PROCEDURE FINDINGS: 1. No evidence of post-procedural complication. INTERVENTIONAL RADIOLOGIST: Michael Huang M.D. (the attending was present for the entire procedure) ANESTHESIA: None. MEDICATION: Lidocaine 1% for local subcutaneous analgesia. COMPLICATIONS: None. PROCEDURE DESCRIPTION AND FINDINGS: The risks, benefits, alternatives and possible complications of the procedure were fully discussed; all questions were answered and informed consent was obtained. The patient was brought into the interventional suite and a pre-procedure 'time-out' was performed. The patient was placed on the fluoroscopy table in the supine position. Preliminary ultrasound images of the right lower quadrant demonstrate a large amount of ascites. The right lower quadrant was prepped and draped in the usual sterile fashion. Maximum sterile barrier precautions were maintained throughout the entire procedure. Following subcutaneous infiltration of lidocaine 1% for local analgesia, under real-time ultrasound guidance, a 5 Tamazight centesis catheter was advanced into the right lower quadrant with real-time visualization of needle entry. The ultrasound images were permanently recorded and submitted to the PACS. The inner stylet was removed and the catheter was attached to gentle vacuum suction. A total of 17 liters of straw-colored fluid were aspirated. The drainage catheter was then removed. A sterile adhesive bandage was placed over the puncture site. The patient tolerated the procedure well without immediate post-procedure complications and was transferred to the interventional radiology recovery area in stable condition. IMPRESSION: SUCCESSFUL ULTRASOUND-GUIDED THERAPEUTIC PARACENTESIS.
== END 2017-06-13 12:00 | disposition home or self-care (01) ==
LOC: C.SPRAD 07:00
PROVIDERS: ATTEND Radiology Vascular & Interventional Radiology
DX: K74.60 Unspecified cirrhosis of liver (principal); R18.8 Other ascites

== ENCOUNTER 2017-07-12 07:35 | Day surgery (SDC) | payer OTHER ==
[2017-05-25 07:18] VITALS: BMI 28.9
[2017-07-12 08:11] VITALS: RESP 18
--- NOTE | 2017-07-12 11:43 | CP.SDSHP ---
Same Day Surgery H & P - History Proposed Procedure: US guided paracentesis Pre-Op Diagnosis: Ascites, - Allergies Allergies: Allergies No Known Allergies Allergy (Verified 04/25/15 22:36) - Physical Exam Vital Signs: Vital Signs 07/12/17 07:56 Temperature 97.7 F Pulse Rate 84 Respiratory 18 Rate Blood Pressure 96/60 L O2 Sat by Pulse 100 Oximetry Mental Status: Alert & Oriented x3 Neuro: WNL Heart: WNL Lungs: WNL - {Optional Preform as Required} Abdomen: Other (very distended, non tender) - Impression Impression: Pt with refractory ascites refered for paracentesis. Plan US guided paracenteiss. Pt. Evaluated Today:Candidate for Anesthesia & Procedure: No Short Stay Discharge - Short Stay Discharge Admitting Diagnosis/Reason for Visit: ASCITES Disposition: HOME/ ROUTINE
--- NOTE | 2017-07-12 11:48 | PCM.SURG1 ---
Surgeon's Initial Post Op Note - Surgeon's Notes Surgeon: Paul Sepulveda MD Life Enrichment Director: NONE Type of Anesthesia: Local Pre-Operative Diagnosis: Ascites Operative Findings: US showed large amount of ascites Post-Operative Diagnosis: Ascites Operation Performed: US guided paracentesis Specimen/Specimens Removed: 14 liters of straw colored fluid Estimated Blood Loss: EBL {In ML}: 0 Blood Products Given: N/A Drains Used: No Drains Post-Op Condition: Good Date of Surgery/Procedure: 07/12/17 Time of Surgery/Procedure: 11:40
[2017-07-12 14:08] VITALS: BP 90/52; PULSE 63; TEMP 97.2; O2SAT 99
--- NOTE | 2017-07-14 13:38 | US ---
Date of Procedure: 07/12/2017 PROCEDURE: Ultrasound-guided paracentesis, CPT 57917 Medications: 7 cc 1% Lidocaine HISTORY: Ascites, abdominal pain, TECHNIQUE: Following informed consent , the patient was placed supine on the stretcher and the site was marked. A limited abdominal ultrasound was performed that showed a large amount of intra-abdominal fluid. Procedural time out was called and the Pt's abdomen was marked and prepped and draped in the usual sterile fashion. Ultrasound-guided large volume paracentesis performed. A total of 14 liters of straw colored fluid was removed without complication. IMPRESSION: Ultrasound-guided large volume paracentesis.
== END 2017-07-12 14:12 | disposition home or self-care (01) ==
LOC: C.SPRAD 07:35
PROVIDERS: ATTEND Radiology Vascular & Interventional Radiology
DX: R18.8 Other ascites (principal)

== ENCOUNTER 2017-08-10 06:44 | Day surgery (SDC) | payer OTHER ==
[2017-05-25 07:18] VITALS: BMI 28.9
[2017-08-10 07:45] VITALS: BP 96/65; PULSE 103; RESP 20; TEMP 97.4; O2SAT 98
--- NOTE | 2017-08-10 11:50 | CP.SDSHP ---
Same Day Surgery H & P - History Proposed Procedure: US guided paracentesis Pre-Op Diagnosis: Ascites - Allergies Allergies: Allergies No Known Allergies Allergy (Verified 04/25/15 22:36) - Physical Exam Vital Signs: Vital Signs 08/10/17 07:06 Temperature 97.4 F L Pulse Rate 103 H Respiratory 20 Rate Blood Pressure 96/65 L O2 Sat by Pulse 98 Oximetry Mental Status: Alert & Oriented x3 Neuro: WNL Heart: WNL Lungs: WNL - {Optional Preform as Required} Abdomen: Other (very distended, non tender) - Impression Impression: Pt with refractory ascites. Plan US guided paracentesis. Pt. Evaluated Today:Candidate for Anesthesia & Procedure: No - Date & Time Date: 08/10/17 Time: 10:45 Short Stay Discharge - Short Stay Discharge Admitting Diagnosis/Reason for Visit: dx:recurrent symptomatic ascites Disposition: HOME/ ROUTINE
--- NOTE | 2017-08-10 11:52 | PCM.SURG1 ---
Surgeon's Initial Post Op Note - Surgeon's Notes Surgeon: Paul Sepulveda MD Clerical And Office Support Workers: NONE Type of Anesthesia: Local Pre-Operative Diagnosis: Ascites Operative Findings: US showed large ascites Post-Operative Diagnosis: Ascites Operation Performed: US guided paracentesis Specimen/Specimens Removed: 12.6 liters of whitish fluid Estimated Blood Loss: EBL {In ML}: 0 Blood Products Given: N/A Drains Used: No Drains Post-Op Condition: Fair Date of Surgery/Procedure: 08/10/17 Time of Surgery/Procedure: 11:30
--- NOTE | 2017-08-10 12:14 | US ---
Date of Procedure: 08/10/2017 PROCEDURE: Ultrasound-guided paracentesis, CPT 10247 Medications: 7 cc 1% Lidocaine HISTORY: Ascites, abdominal pain TECHNIQUE: Following informed consent , the patient was placed supine on the stretcher and the site was marked. A limited abdominal ultrasound was performed that showed a large amount of intra-abdominal fluid. Procedural time out was called and the Pt's abdomen was marked and prepped and draped in the usual sterile fashion. Ultrasound-guided large volume paracentesis performed. A total of 12.2 liters of straw colored fluid was removed without complication. IMPRESSION: Ultrasound-guided large volume paracentesis.
== END 2017-08-10 12:15 | disposition home or self-care (01) ==
LOC: C.SPRAD 06:44
PROVIDERS: ATTEND Radiology Vascular & Interventional Radiology
DX: R18.8 Other ascites (principal)

== ENCOUNTER → 2017-08-29 | Day surgery (SDC) | payer OTHER ==
[2017-05-25 07:18] VITALS: BMI 28.9
[2017-08-29 09:07] VITALS: BP 126/66; PULSE 100; RESP 20; TEMP 97.6; O2SAT 100
--- NOTE | 2017-08-29 10:41 | CP.SDSHP ---
Same Day Surgery H & P - History Proposed Procedure: Paracentesis Pre-Op Diagnosis: Pt with refractory ascites - Allergies Allergies: Allergies No Known Allergies Allergy (Verified 04/25/15 22:36) - Physical Exam Vital Signs: Vital Signs 08/29/17 08:30 Temperature 97.6 F Pulse Rate 100 H Respiratory 20 Rate Blood Pressure 126/66 O2 Sat by Pulse 100 Oximetry Mental Status: Alert & Oriented x3 Neuro: WNL Heart: WNL Lungs: WNL - {Optional Preform as Required} Abdomen: Other (very distended) - Impression Impression: Pt with refractory ascites referred for paracentesis. Pt. Evaluated Today:Candidate for Anesthesia & Procedure: No - Date & Time Date: 08/29/17 Time: 10:00 Short Stay Discharge - Short Stay Discharge Admitting Diagnosis/Reason for Visit: DX:RECURRENT ASCITES Disposition: HOME/ ROUTINE
--- NOTE | 2017-08-29 11:53 | PCM.SURG1 ---
Surgeon's Initial Post Op Note - Surgeon's Notes Surgeon: Paul Sepulveda MD Hazmat Technician: NONE Type of Anesthesia: Local Pre-Operative Diagnosis: Ascites Operative Findings: US showed large ascites Post-Operative Diagnosis: Ascites Operation Performed: US guided paracentesis Specimen/Specimens Removed: 16 liters Estimated Blood Loss: EBL {In ML}: 2 Blood Products Given: N/A Drains Used: No Drains Post-Op Condition: Good Date of Surgery/Procedure: 08/29/17 Time of Surgery/Procedure: 11:45
--- NOTE | 2017-08-30 13:51 | US ---
Date of Procedure: 09/08/2017 PROCEDURE: Ultrasound-guided paracentesis, CPT 43616 Medications: 7 cc 1% Lidocaine HISTORY: Ascites, abdominal pain TECHNIQUE: Following informed consent , the patient was placed supine on the stretcher and the site was marked. A limited abdominal ultrasound was performed that showed a large amount of intra-abdominal fluid. Procedural time out was called and the Pt's abdomen was marked and prepped and draped in the usual sterile fashion. Ultrasound-guided large volume paracentesis performed. A total of 16 liters of straw colored fluid was removed without complication. IMPRESSION: Ultrasound-guided large volume paracentesis.
== END | disposition home or self-care (01) ==
LOC: C.SPRAD 08:11
PROVIDERS: ATTEND Radiology Vascular & Interventional Radiology
DX: R18.8 Other ascites (principal)

== ENCOUNTER 2017-09-22 07:22 | Day surgery (SDC) | payer OTHER ==
[2017-05-25 07:18] VITALS: BMI 28.9
--- NOTE | 2017-09-22 11:10 | CP.SDSHP ---
Same Day Surgery H & P - History Proposed Procedure: Paracentesis Pre-Op Diagnosis: Ascites - Allergies Allergies: Allergies No Known Allergies Allergy (Verified 04/25/15 22:36) - {Optional Preform as Required} Abdomen: Other (distended) - Impression Impression: Pt with refractory ascites. Plan US guided paracentesis. Pt. Evaluated Today:Candidate for Anesthesia & Procedure: No Short Stay Discharge - Short Stay Discharge Admitting Diagnosis/Reason for Visit: DX:RECURRENT SYMPTOMATIC ASCITES Disposition: HOME/ ROUTINE
--- NOTE | 2017-09-22 11:11 | PCM.SURG1 ---
Surgeon's Initial Post Op Note - Surgeon's Notes Surgeon: Paul Sepulveda MD Candy Catcher: NONE Type of Anesthesia: Local Pre-Operative Diagnosis: Ascites Operative Findings: US showed large amount of ascites Post-Operative Diagnosis: Ascites Operation Performed: US guided paracentesis Specimen/Specimens Removed: 18 liters of whitish fluid Estimated Blood Loss: EBL {In ML}: 0 Blood Products Given: N/A Drains Used: No Drains Post-Op Condition: Fair Date of Surgery/Procedure: 09/22/17 Time of Surgery/Procedure: 11:00
--- NOTE | 2017-09-22 12:55 | US ---
Date of Procedure: 09/22/2017 PROCEDURE: Ultrasound-guided paracentesis, CPT 78246 Medications: 7 cc 1% Lidocaine HISTORY: Ascites, abdominal pain TECHNIQUE: Following informed consent , the patient was placed supine on the stretcher and the site was marked. A limited abdominal ultrasound was performed that showed a large amount of intra-abdominal fluid. Procedural time out was called and the Pt's abdomen was marked and prepped and draped in the usual sterile fashion. Ultrasound-guided large volume paracentesis performed. A total of 18 liters of whitish fluid was removed without complication. Fluid specimen was sent for culture, sensitivity, cytology and chemistries. IMPRESSION: Ultrasound-guided large volume paracentesis.
== END 2017-09-22 12:40 | disposition home or self-care (01) ==
LOC: C.SPRAD 07:22
PROVIDERS: ATTEND Radiology Vascular & Interventional Radiology
DX: R18.8 Other ascites (principal)

== ENCOUNTER 2017-10-19 07:57 | Day surgery (SDC) | payer OTHER ==
[2017-05-25 07:18] VITALS: BMI 28.9
--- NOTE | 2017-10-19 10:43 | CP.SDSHP ---
Same Day Surgery H & P - History Proposed Procedure: US guided paracentesis Pre-Op Diagnosis: Ascites - Allergies Allergies: Allergies No Known Allergies Allergy (Verified 04/25/15 22:36) - Physical Exam Mental Status: Alert & Oriented x3 - Impression Impression: Pt with refractory ascites. Plan US guided paracentesis. Informed consent obtained. Pt. Evaluated Today:Candidate for Anesthesia & Procedure: No - Date & Time Date: 10/19/17 Time: 10:35 Short Stay Discharge - Short Stay Discharge Admitting Diagnosis/Reason for Visit: DX: RECURRENT ASCITES Disposition: HOME/ ROUTINE
--- NOTE | 2017-10-19 11:43 | PCM.SURG1 ---
Surgeon's Initial Post Op Note - Surgeon's Notes Surgeon: Paul Sepulveda MD Operations Support Specialist: NONE Type of Anesthesia: Local Pre-Operative Diagnosis: Ascites Operative Findings: US showed large amount of ascites Post-Operative Diagnosis: Ascites Operation Performed: US guided paracentesis. Specimen/Specimens Removed: 14 liters of straw colored fluid Estimated Blood Loss: EBL {In ML}: 0 Blood Products Given: N/A Drains Used: No Drains Post-Op Condition: Good Date of Surgery/Procedure: 10/19/17 Time of Surgery/Procedure: 11:40
--- NOTE | 2017-10-21 16:37 | US ---
Date of Procedure: 10/19/2017 PROCEDURE: Ultrasound-guided paracentesis, CPT 75136 Medications: 7 cc 1% Lidocaine HISTORY: Ascites, abdominal pain Following informed consent , the patient was placed supine on the stretcher and the site was marked. A limited abdominal ultrasound was performed that showed a large amount of intra-abdominal fluid. Procedural time out was called and the Pt's abdomen was marked and prepped and draped in the usual sterile fashion. Ultrasound-guided large volume paracentesis performed. A total of 14 liters of straw colored fluid was removed without complication. IMPRESSION: Ultrasound-guided large volume paracentesis.
== END 2017-10-19 13:46 | disposition home or self-care (01) ==
LOC: C.SPRAD 07:57
PROVIDERS: ATTEND Radiology Vascular & Interventional Radiology
DX: R18.8 Other ascites (principal)